=== PATIENT | male | born 1950 | race Caucasian/White ===

== ENCOUNTER 2018-04-03 05:36 | Day surgery (SDC) | payer OTHER, BC ==
[2018-03-21 13:48] VITALS: BMI 30.2
[2018-04-03] MEDS: TROPICAMIDE 1% OPHTH SOLN 15 ML BOTTLE ONE ×3 (06:55→07:05)
[2018-04-03] MEDS: CIPROFLOXACIN 0.3% EYE DROPS 5 ML BOTTLE ONE ×3 (06:55→07:05)
[2018-04-03] MEDS: CYCLOPENTOLATE 2% OPHTH SOLN 2 ML BOTTLE ONE ×3 (06:55→07:05)
[2018-04-03] MEDS: PHENYLEPHRINE 2.5% OPHTH SOLN 15 ML BOTTLE ONE ×3 (06:55→07:05)
[2018-04-03] MEDS ORDERED: BSS (NA/CA/MG/K) BALANCED SALT SOLUTION OPHTH SOLN 15 ML BOTTLE ONE (07:12)
[2018-04-03] MEDS ORDERED: TETRACAINE 0.5% OPHTH SOLN 2 ML BOTTLE ONE (07:12)
[2018-04-03] MEDS ORDERED: CARBACHOL 0.01% INTRA-OCULAR 1.5 ML VIAL ONE (07:12)
[2018-04-03] MEDS ORDERED: LIDOCAINE 1% P/F 10 MG/ML VIAL ONE (07:12)
[2018-04-03] MEDS ORDERED: EPINEPHrine/PF 1 MG/1 ML (1:1,000) AMPULE ONE (07:13)
[2018-04-03] MEDS ORDERED: NEO/POLYMYX B SULF/DEXAMETH OPHTHALMIC 5ML BOTTLE ONE ×2 (07:13)
[2018-04-03] MEDS ORDERED: MIDAZOLAM HCL 2 MG/2 ML SINGLE DOSE VIAL ONE (08:13)
[2018-04-03] MEDS ORDERED: ePHEDrine SULFATE 50 MG/1 ML AMPULE ONE (08:13)
[2018-04-03] MEDS ORDERED: SUCCINYLCHOLINE CHLORIDE 200 MG/10 ML VIAL ONE (08:13)
[2018-04-03 08:53] VITALS: BP 116/65; PULSE 55
[2018-04-03 08:56] VITALS: TEMP 98.1
--- NOTE | 2018-04-03 09:23 | OP ---
DATE OF OPERATION: 04/03/2018 OPERATIVE PROCEDURE: Lens Phacoemulsification with Posterior Chamber Intraocular Lens Placement Left Eye PREOPERATIVE DIAGNOSIS: Visually Significant Cataract of Left Eye POSTOPERATIVE DIAGNOSIS: Visually Significant Cataract of Left Eye SURGEON: Hi Maurer M.D. ANESTHESIA: MAC PROCEDURE: The patient was brought to the operating room and placed under monitored anesthesia care by Anesthesia. A drop of Tetracaine was then placed over the left eye. The patient was then prepped and draped in the usual sterile manner. A speculum was then placed over the left eye. The eye was then well irrigated with copious amounts of BSS (balanced salt solution). The operating microscope was then moved into position. A paracentesis was performed using a 15 degree blade. At this point 0.5 mL of 1% preservative-free lidocaine was injected into the anterior chamber. Amvisc plus was then injected into the anterior chamber. A clear corneal incision was then formed using a 2.2 mm keratome. A capsulorrhexis was then performed in a continuous circular fashion beginning with a cystotome, completed with an Utratas forceps. Hydrodissection was then performed using BSS on a cannula. The phaco probe was then introduced through the corneal wound and the cataract was removed using the phaco chop technique. Approximately 3 seconds of absolute phaco time was used. The remaining cortex was then removed using irrigation and aspiration with an I/A probe. The capsule was then filled with regular Amvisc and the capsule was noted to be intact. A previously selected foldable posterior chamber intraocular lens was then injected into the capsule through the corneal wound using a lens injector. It was then dialed into position using a Sinskey hook. The Amvisc was then removed using irrigation and aspiration. Miostat was then injected through the paracentesis to constrict the pupil. The paracentesis and corneal wound were then hydrated and noted to be water tight. A drop of Maxitrol was then placed over the eye. The speculum was removed and clear shield was taped over the eye. The patient tolerated the procedure well and there were no surgical complications. The patient was asked to follow up in my office the next day. HI MAURER M.D. [id number]
[2018-04-03] MEDS ORDERED: ACETAMINOPHEN 325 MG TABLET (FP) PO PRN (11:25)
[2018-04-03] MEDS ORDERED: ONDANSETRON 4 MG/2 ML VIAL IVPUSH PRN (11:25)
[2018-04-03] MEDS ORDERED: LACTATED RINGERS SOLUTION 1,000 ML IV SCH (11:30)
== END 2018-04-03 09:15 | disposition home or self-care (01) ==
LOC: FASU 05:36
PROVIDERS: ATTEND Ophthalmology
PROC: 08RK3JZ Replacement of Left Lens with Synthetic Substitute, Percutaneous Approach (ICD-10-PCS; principal; 2018-04-03 08:08)
DX: H26.8 Other specified cataract (principal)
CPT/HCPCS: 82962

== ENCOUNTER 2022-04-11 04:07 | Day surgery (SDC) | payer BC ==
[2022-04-06 10:34] VITALS: BMI 29.0
[2022-04-11] MEDS ORDERED: ceFAZolin SODIUM 1 GM VIAL IVPB ONE (09:22)
[2022-04-11] MEDS ORDERED: MIDAZOLAM HCL 2 MG/2 ML SINGLE DOSE VIAL ONE (10:19)
[2022-04-11] MEDS ORDERED: ceFAZolin SODIUM 1 GM VIAL ONE (10:22)
[2022-04-11 11:18] VITALS: RESP 16
[2022-04-11 11:56] VITALS: BP 133/61; PULSE 50; TEMP 97.5
== END 2022-04-11 11:55 | disposition home or self-care (01) ==
LOC: JASU-SURG 04:07
PROVIDERS: ATTEND Urology
PROC: 0TF3XZZ Fragmentation in Right Kidney Pelvis, External Approach (ICD-10-PCS; principal; 2022-04-11 09:45)
DX: N20.0 Calculus of kidney (principal)
CPT/HCPCS: 82962

== ENCOUNTER 2022-05-17 09:13 | Day surgery (SDC) | payer OTHER, BC ==
[2022-05-10 10:42] VITALS: BMI 29.0
[2022-05-17] MEDS ORDERED: BSS (NA/CA/MG/K) BALANCED SALT SOLUTION OPHTH SOLN 15 ML BOTTLE ONE (09:37)
[2022-05-17] MEDS ORDERED: NEO/POLYMYX B SULF/DEXAMETH OPHTHALMIC 5ML BOTTLE ONE (09:37)
[2022-05-17] MEDS ORDERED: CARBACHOL 0.01% INTRA-OCULAR 1.5 ML VIAL ONE (09:37)
[2022-05-17] MEDS ORDERED: TETRACAINE 0.5% OPHTH SOLN 2 ML BOTTLE ONE (09:37)
[2022-05-17] MEDS ORDERED: MIDAZOLAM HCL 2 MG/2 ML SINGLE DOSE VIAL ONE (10:29)
[2022-05-17] MEDS: TROPICAMIDE 1% OPHTH SOLN 15 ML BOTTLE ONE ×3 (10:30→10:40)
[2022-05-17] MEDS: CIPROFLOXACIN 0.3% EYE DROPS 5 ML BOTTLE ONE ×3 (10:30→10:40)
[2022-05-17] MEDS: CYCLOPENTOLATE 2% OPHTH SOLN 2 ML BOTTLE ONE ×3 (10:30→10:40)
[2022-05-17] MEDS: PHENYLEPHRINE 2.5% OPTHALMIC DROP 2ML BOTTLE ONE ×3 (10:30→10:40)
[2022-05-17 12:28] VITALS: RESP 18; TEMP 97.7
[2022-05-17 12:48] VITALS: BP 131/71; PULSE 64
== END 2022-05-17 13:00 | disposition home or self-care (01) ==
LOC: FASU 09:13
PROVIDERS: ATTEND Ophthalmology
PROC: 08RJ3JZ Replacement of Right Lens with Synthetic Substitute, Percutaneous Approach (ICD-10-PCS; principal; 2022-05-17 11:59)
DX: H26.8 Other specified cataract (principal)
CPT/HCPCS: 66984; V2632; 82962

== ENCOUNTER 2022-06-14 05:27 | Day surgery (SDC) | payer OTHER, BC ==
[2022-06-12 15:58] VITALS: BMI 29.8
[2022-06-14] MEDS ORDERED: PROPOFOL 20 ML ONE (15:05)
[2022-06-14] MEDS ORDERED: SUCCINYLCHOLINE CHLORIDE 200 MG/10 ML SYRINGE ONE (15:05)
[2022-06-14] MEDS ORDERED: ceFAZolin SODIUM 1 GM VIAL IVPB ONE (15:23)
[2022-06-14] MEDS ORDERED: oxyCODONE HCL 5 MG TABLET PO PRN (18:46)
[2022-06-14] MEDS ORDERED: oxyCODONE HCL 5 MG TABLET ONE (18:52)
[2022-06-14] MEDS ORDERED: ACETAMINOPHEN 1000 MG/100 ML BAG IVPB PRN (19:35)
[2022-06-14] MEDS ORDERED: SODIUM CHLORIDE 1,000 ML IV SCH (19:45)
[2022-06-14] MEDS: RAMIPRIL 5 MG CAPSULE PO SCH (22:46)
[2022-06-15] MEDS: RAMIPRIL 5 MG CAPSULE PO SCH (09:53)
[2022-06-15] MEDS ORDERED: ASPIRIN 81 MG CHEWABLE TABLETS PO SCH (10:00)
[2022-06-15 12:47] VITALS: RESP 18
[2022-06-15 15:17] VITALS: BP 141/60; PULSE 59; TEMP 98.6
[2022-06-15] MEDS ORDERED: ROSUVASTATIN CA 10 MG TABLET PO SCH (22:00)
== END 2022-06-15 18:09 | disposition home or self-care (01) ==
LOC: JASU-SURG 05:27 → JASUSAT 05:27 → J8W 20:55 → JASUSAT 06-15 18:09
PROVIDERS: ATTEND Urology
PROC: 0TC68ZZ Extirpation of Matter from Right Ureter, Via Natural or Artificial Opening Endoscopic (ICD-10-PCS; principal; 2022-06-14 12:00)
PROC: 0T768DZ Dilation of Right Ureter with Intraluminal Device, Via Natural or Artificial Opening Endoscopic (ICD-10-PCS; 2022-06-14 12:00)
PROC: BT1DYZZ Fluoroscopy of Right Kidney, Ureter and Bladder using Other Contrast (ICD-10-PCS; 2022-06-14 12:00)
DX: N20.1 Calculus of ureter (principal)
CPT/HCPCS: 82962; 87086; 94760; C1758; C2617; C9803-CS; U0003; U0005